=== PATIENT | male | born 1985 | race African-American/Black ===

== ENCOUNTER 2022-06-10 09:23 | Emergency (ER) | payer OTHER ==
[~2022-06-10] VITALS: Ht 175.3 cm; Wt 100.0 kg
[2022-06-10 09:26] VITALS: BP 138/60
[2022-06-10] MEDS ORDERED: IBUP-2028 MT (11:26)
[2022-06-10] MEDS ORDERED: IBUPROFEN 400MG TABLET PO ONE (11:30)
== END 2022-06-10 12:15 | disposition home or self-care (01) ==
LOC: ER 09:23
DX: M25.511 Pain in right shoulder (principal)
CPT/HCPCS: 73030; 99283

== ENCOUNTER 2022-12-26 11:14 | Emergency (ER) | payer MEDICAID, OTHER ==
[~2022-12-26] VITALS: Ht 167.6 cm; Wt 91.0 kg
[~2022-12-26 11:14] MED LIST: IBUP-2028 MT
[2022-12-26 11:19] VITALS: BP 152/101
[2022-12-26] MEDS ORDERED: SULF1TAB48 MT (12:08)
[2022-12-26] MEDS ORDERED: IBUP-2029 MT (12:08)
== END 2022-12-26 12:18 | disposition home or self-care (01) ==
LOC: ER 11:14
DX: L03.213 Periorbital cellulitis (principal)
CPT/HCPCS: 99283

== ENCOUNTER 2024-02-25 10:43 | Emergency (ER) | payer MEDICAID ==
[~2024-02-25] VITALS: Ht 160 cm; Wt 87.0 kg
[~2024-02-25 10:43] MED LIST changes: +IBUP-2029 MT; +SULF1TAB48 MT
[2024-02-25 10:51] VITALS: O2SAT 99
[2024-02-25 11:20] LABS: EOSINOPHILS % 3.4 % (0.0-5.0); HEMOGLOBIN. 15.7 g/dL (14.0-18.0); LYMPHOCYTES % 42.6 % (20.0-50.0); MEAN CORPUSCULAR HEMOGLOBIN 31.5 pg (28.0-32.0); MEAN CORPUSCULAR HGB CONC 34.9 g/dL (31.0-37.0); MEAN CORPUSCULAR VOLUME 90.2 fL (80.0-94.0); MEAN PLATELET VOLUME 7.8 fl (7.4-10.4); MONOCYTES % 7.7 % (2.0-8.0); NEUTROPHILS % 44.3 % (40.0-76.0); PLATELET 284 x1000/uL (130-400); RED BLOOD CELL COUNT 4.99 mill/uL (4.7-6.1); RED CELL DISTRIBUTION WIDTH 13.2 % (11.6-14.6); WHITE BLOOD COUNT 4.6 x1000/uL (4.5-11.0)
[2024-02-25 12:25] LABS: CHLORIDE 106 mEq/L (98-107); POTASSIUM 3.8 mEq/L (3.5-5.1); SODIUM 138 mEq/L (136-145)
[2024-02-25 12:26] LABS: CARBON DIOXIDE 27 mEq/L (21-32)
[2024-02-25 12:32] LABS: GLUCOSE 138 mg/dL (70-105); UREA NITROGEN BLOOD 10 mg/dL (9-23)
[2024-02-25 12:39] LABS: CLARITY URINE CLEAR (CLEAR); COLOR URINE YELLOW (YELLOW); GLUCOSE URINE NEGATIVE (NEGATIVE); KETONES URINE NEGATIVE (NEGATIVE); LEUKOCYTE ESTERASE URINE NEGATIVE (NEGATIVE); NITRITE URINE NEGATIVE (NEGATIVE); OCCULT BLOOD URINE NEGATIVE (NEGATIVE); PH URINE 6.5 (4.5-8.0); PROTEIN URINE NEGATIVE (NEGATIVE); SPECIFIC GRAVITY URINE 1.022 (1.005-1.030)
[2024-02-25 12:56] LABS: TROPONIN I HIGH SENSITIVITY 4 ng/L (3.0-53)
[2024-02-25 13:21] LABS: MUCUS URINE TRACE /lpf (NONE/TRACE); SQUAMOUS EPITHELIAL CELL URINE NONE SEEN /lpf (RARE/1+)
[2024-02-25 13:22] LABS: BACTERIA URINE TRACE; RBC URINE 0-2 /hpf (0-2); WBC URINE 0-2 /hpf (0-2)
[2024-02-25] MEDS: KETOROLAC 60MG/2ML VIAL IM ONE (13:25)
[2024-02-25] MEDS ORDERED: IBUP-2029 MT (13:48)
[2024-02-25 13:55] VITALS: BP 147/66; PULSE 70; RESP 18; TEMP 97.9
[2024-02-25] MEDS: HYDROCODONE/ACETAMINOPHEN 5/325MG TABLET PO ONE (14:32)
[2024-02-25 16:38] LABS: ALANINE AMINOTRANSFERASE 38 IU/L (10-49); ALBUMIN 4.5 g/dL (3.2-4.8); ASPARTATE AMINOTRANSFERASE 35 IU/L (<34); BILIRUBIN DIRECT 0.2 mg/dL (<=3.0); BILIRUBIN TOTAL 0.5 mg/dL (0.1-1.0); PROTEIN TOTAL 7.3 g/dL (6.0-8.3)
== END 2024-02-25 13:56 | disposition home or self-care (01) ==
LOC: ER 10:43
DX: R07.89 Other chest pain (principal)
CPT/HCPCS: 80076; 80048; 81003; 83880; 85025; 84484; 36415; 71045; 93005; 96372; 99285; J1885; Z7610